=== PATIENT | male | born 1985 | race Two or more races ===

== ENCOUNTER 2022-03-18 02:47 | Emergency (ER) | payer MEDICAID, OTHER ==
[~2022-03-18] VITALS: Ht 172.7 cm; Wt 68.0 kg
--- NOTE | 2022-03-18 03:15 | NUR ---
BIB FAMILY FOR C/O L LOWER BACK PAIN RADIATING TO LLE. PT A/OX4. TOLERATING R/A WELL WITH NO RESP DISTRESS. SAFETY MEASURES IN PLACE.
--- NOTE | 2022-03-18 03:19 | NUR ---
DR. JIMY QUIROS AT PT'S BEDSIDE FOR EVAL
[2022-03-18] MEDS ORDERED: DEXAMETHASONE SOD PHOSPHATE 10 MG/ML VIAL ONE (03:29)
[2022-03-18] MEDS ORDERED: KETOROLAC TROMETHAMINE INJ 60 MG/2 ML VIAL IM ONE ×2 (03:29→03:30)
[2022-03-18] MEDS ORDERED: DEXAMETHASONE SOD PHOSPHATE 4 MG/ML VIAL IM ONE (03:30)
[2022-03-18] MEDS ORDERED: CARISOPRODOL 350 MG TABLET PO ONE (03:30)
[2022-03-18] MEDS ORDERED: HYDROMORPHONE 1 MG/1 ML DISP.SYRIN IM ONE (03:30)
[2022-03-18] MEDS ORDERED: HYDROMORPHONE 1 MG/1 ML DISP.SYRIN ONE (03:30)
[2022-03-18] MEDS ORDERED: CARISOPRODOL 350 MG TABLET ONE (03:30)
[2022-03-18] MEDS ORDERED: IBUP-1957 PO (03:36)
[2022-03-18] MEDS ORDERED: PRED50TA PO (03:36)
[2022-03-18] MEDS ORDERED: CARI350T PO (03:36)
[2022-03-18] MEDS ORDERED: HYDR-3972 PO (03:36)
--- NOTE | 2022-03-18 04:14 | NUR ---
Patient discharged to home in stable condition. Written and verbal after care instructions given. Patient verbalizes understanding of instruction.
[2022-03-18 04:15] VITALS: BP 126/93
== END 2022-03-18 04:15 | disposition home or self-care (01) ==
LOC: ER 02:49
DX: M54.42 Lumbago with sciatica, left side (principal); Z87.39 Personal history of other diseases of the musculoskeletal system and connective tissue
CPT/HCPCS: 99284; 96372; J1100; J1885; J1170